=== PATIENT | female | born 1995 | race American Indian/Alaskan Native ===

== ENCOUNTER 2017-12-23 21:50 | Inpatient (IN) | payer MEDICAID ==
[~2017-12-23] VITALS: Ht 165.1 cm; Wt 106.0 kg
[~2017-12-23 21:50] MED LIST: BAC10T PO; FAMO-128 PO; METH4TAB81 PO; NAPR-56 PO; PHEN-716 PO; RANI150T44 PO
[2017-12-23 22:35] LABS: CLARITY,URINE CLOUDY (Clear); COLOR,URINE YELLOW (Yellow); GLUCOSE, URINE NEGATIVE (Neg); KETONES,URINE NEGATIVE (Neg); LEUKOCYTE ESTERASE ,URINE LARGE (Neg); NITRITES, URINE NEGATIVE (Neg); OCCULT BLOOD,URINE LARGE (Neg); PROTEIN,URINE TRACE mg/dl (Neg)
[2017-12-23 22:36] LABS: URINE HCG NEGATIVE (NEG)
[2017-12-23 22:41] LABS: UA COLLECTION TYPE CLN CATCH MIDSTREAM
[2017-12-23 22:43] LABS: BACTERIA,URINE FEW /HPF (Neg); RBC,URINE 20-50 /HPF (0-2); SQUAMOUS EPITHELIAL CELL,UR FEW /LPF (FEW); TRICHOMONAS,URINE FEW /HPF (NEGATIVE); WBC,URINE 30-50 /HPF (0-4)
[2017-12-23] MEDS ORDERED: ondansetron 4mg rapidly disintigrating tab PO ONE (23:20)
[2017-12-23] MEDS ORDERED: HYDROcodone/acetaminophen 5mg/325mg tablet PO ONE (23:20)
[2017-12-23] MEDS ORDERED: ketorolac tromethamine 15mg/ml inj. IM ONE (23:30)
[2017-12-23 23:35] LABS: BASOPHILS # (AUTO) 0.1 X10'3 (0-0.2); BASOPHILS % (AUTO) 0.6 % (0-1); EOSINOPHILS # (AUTO) 0.4 X10'3 (0-0.9); EOSINOPHILS % (AUTO) 2.2 % (0-6); HEMATOCRIT 33.8 % (35.0-45.0); HEMOGLOBIN 10.6 g/dl (12.0-16.0); LYMPHOCYTES # (AUTO) 1.7 X10'3 (1.1-4.8); LYMPHOCYTES % (AUTO) 10.5 % (21-51); MEAN CORPUSCULAR HEMOGLOBIN 23.1 PG (27.0-31.0); MEAN CORPUSCULAR HGB CONC 31.2 % (33.0-36.5); MEAN CORPUSCULAR VOLUME 74.1 FL (78-98); MEAN PLATELET VOLUME 7.1 FL (7.4-10.4); MONOCYTES # (AUTO) 0.8 X10'3 (0-0.9); MONOCYTES % (AUTO) 5.1 % (2-12); NEUTROPHILS # (AUTO) 13.1 X10'3 (1.8-7.7); NEUTROPHILS % (AUTO) 81.6 % (42-75); PLATELET COUNT 443 X10'3 (140-440); RED BLOOD COUNT 4.57 X10'6 (4.20-5.60); RED CELL DISTRIBUTION WIDTH 17.5 % (11.5-14.5); WHITE BLOOD COUNT 16.1 X10'3 (4.5-11.0)
[2017-12-23 23:50] LABS: ALANINE AMINOTRANSFERASE 20 U/L (12-78); ALBUMIN 3.3 G/DL (3.4-5.0); ALBUMIN/GLOBULIN RATIO 0.7 (1.1-1.5); ALKALINE PHOSPHATASE 86 IU/L (46-116); ANION GAP 9 (8-16); ASPARTATE AMINO TRANSFERASE 14 U/L (10-37); BILIRUBIN,TOTAL 0.2 MG/DL (0.1-1.0); BLOOD UREA NITROGEN 11 MG/DL (7-18); BUN/CREATININE RATIO 13.8 (6.6-38.0); CALCIUM 9.1 MG/DL (8.5-10.1); CHLORIDE 105 MMOL/L (99-107); GLUCOSE 114 MG/DL (70-104); POTASSIUM 3.8 MMOL/L (3.5-5.1); SODIUM 142 MMOL/L (135-145); TOTAL PROTEIN 7.9 G/DL (6.4-8.2); eGFR 88 ML/MIN
[2017-12-24] VITALS (18 sets, daily range): BP systolic 86–140; BP diastolic 56–86
[2017-12-24] MEDS ORDERED: metroNIDAZOLE 500mg tablet PO ONE (00:20)
[2017-12-24] MEDS ORDERED: NITR100C6 PO (00:20)
[2017-12-24] MEDS ORDERED: piperacillin/tazo 3.375gm/50ml 50 ML IV ONE (02:00)
[2017-12-24] MEDS ORDERED: morphine 2 MG/ML inj. syringe IV PRN (02:15)
[2017-12-24] MEDS ORDERED: acetaminophen 325mg tablet PO PRN (02:15)
[2017-12-24] MEDS ORDERED: bisacodyl 10mg suppository rectal RC PRN (02:15)
[2017-12-24] MEDS ORDERED: ondansetron/PF 4mg/2ml inj IV PRN ×2 (02:15→10:10)
[2017-12-24] MEDS ORDERED: diphenhydrAMINE 25mg capsule PO PRN (02:15)
[2017-12-24] MEDS ORDERED: metoclopramide 5 mg/ml inj IV PRN (02:15)
[2017-12-24] MEDS ORDERED: mag hydrox/Alum hydrox/simeth 30ml oral suspension PO PRN (02:15)
[2017-12-24] MEDS ORDERED: diphenhydrAMINE 50 mg/ml inj IV PRN (02:15)
[2017-12-24] MEDS ORDERED: HYDROcodone/acetaminophen 5mg/325mg tablet PO PRN (02:15)
[2017-12-24] MEDS ORDERED: magnesium hydroxide 30ml (MOM) UD suspension PO PRN (02:15)
[2017-12-24] MEDS ORDERED: HYDROmorphone 1 mg/ml syringe IV PRN (02:15)
[2017-12-24] MEDS ORDERED: IBUP-1984 PO (02:33)
[2017-12-24] MEDS: normal saline 1000ml 1,000 ML IV SCH ×3 (02:35→12:11)
[2017-12-24 02:55] LABS: HEMOGLOBIN A1C 6.1 % (4.5-6.2)
[2017-12-24] MEDS: docusate sod 100mg capsule PO SCH ×2 (07:44→21:52)
[2017-12-24] MEDS ORDERED: pantoprazole 40 MG vial IV SCH (08:00)
[2017-12-24] MEDS ORDERED: BUPIVAcaine/PF 2.5mg/ml (0.25%) 10ml vial ONE (09:41)
[2017-12-24] MEDS ORDERED: piperacillin/tazo 4.5gm/100ml 100 ML IV SCH (10:00)
[2017-12-24] MEDS ORDERED: fentaNYL/PF 50MCG/1 ML 2ML syringe ONE (10:00)
[2017-12-24] MEDS ORDERED: pneumococcal 23-VAL P-sac vacc 25 mcg/0.5ml vial IMVAC ONE (10:00)
[2017-12-24] MEDS ORDERED: midazolam 2 mg/2 ml injection ONE (10:00)
[2017-12-24] MEDS ORDERED: LIDOcaine 2% (20mg/ml) 5ml vial ONE (10:01)
[2017-12-24] MEDS ORDERED: propofol inj 20 ML IV ONE (10:01)
[2017-12-24] MEDS ORDERED: dexamethasone sod phosphate 4mg/ml inj. ONE (10:01)
[2017-12-24] MEDS ORDERED: ondansetron/PF 4mg/2ml inj ONE (10:01)
[2017-12-24] MEDS ORDERED: glycopyrrolate 0.2mg/ml inj ONE (10:01)
[2017-12-24] MEDS ORDERED: rocuronium 10mg/ml inj IV ONE (10:01)
[2017-12-24] MEDS ORDERED: ringers solution, lacted 1,000 ML IV SCH (10:07)
[2017-12-24] MEDS ORDERED: hydrALAZINE 20mg/ml inj. IV PRN (10:10)
[2017-12-24] MEDS ORDERED: labetalol 20mg/4ml (5mg/ml) syringe IV PRN (10:10)
[2017-12-24] MEDS ORDERED: morphine 4 MG/ML inj SYRINge IV PRN ×2 (10:10)
[2017-12-24] MEDS ORDERED: fentaNYL/PF 50MCG/1 ML 2ML syringe IV PRN ×2 (10:10)
[2017-12-24] MEDS ORDERED: sevoflurane 250ml liquid IH ONE (10:12)
[2017-12-24] MEDS ORDERED: neostigmine methylsulfate 1 MG/ML 10ml vial ONE (10:12)
[2017-12-24] MEDS: acetaminophen 325mg tablet PO PRN ×2 (15:57→21:53)
[2017-12-24] MEDS ORDERED: temazepam 15mg capsule PO PRN (21:00)
[2017-12-24] MEDS: ciprofloxacin 250mg tablet PO SCH (21:52)
[2017-12-25] VITALS: BP 111/73
[2017-12-25 05:47] LABS: BASOPHILS % (AUTO) 0.1 % (0-1); EOSINOPHILS # (AUTO) 0.2 X10'3 (0-0.9); EOSINOPHILS % (AUTO) 1.7 % (0-6); HEMATOCRIT 27.8 % (35.0-45.0); HEMOGLOBIN 8.8 g/dl (12.0-16.0); LYMPHOCYTES # (AUTO) 1.2 X10'3 (1.1-4.8); LYMPHOCYTES % (AUTO) 10.6 % (21-51); MEAN CORPUSCULAR HEMOGLOBIN 23.4 PG (27.0-31.0); MEAN CORPUSCULAR HGB CONC 31.6 % (33.0-36.5); MEAN CORPUSCULAR VOLUME 74.2 FL (78-98); MEAN PLATELET VOLUME 7.2 FL (7.4-10.4); MONOCYTES # (AUTO) 0.5 X10'3 (0-0.9); MONOCYTES % (AUTO) 4.2 % (2-12); NEUTROPHILS # (AUTO) 9.2 X10'3 (1.8-7.7); NEUTROPHILS % (AUTO) 83.4 % (42-75); PLATELET COUNT 369 X10'3 (140-440); RED BLOOD COUNT 3.74 X10'6 (4.20-5.60); RED CELL DISTRIBUTION WIDTH 17.3 % (11.5-14.5)
[2017-12-25 06:06] LABS: ALANINE AMINOTRANSFERASE 18 U/L (12-78); ALBUMIN 2.6 G/DL (3.4-5.0); ALBUMIN/GLOBULIN RATIO 0.7 (1.1-1.5); ALKALINE PHOSPHATASE 67 IU/L (46-116); ANION GAP 8 (8-16); ASPARTATE AMINO TRANSFERASE 13 U/L (10-37); BILIRUBIN,TOTAL 0.3 MG/DL (0.1-1.0); BLOOD UREA NITROGEN 10 MG/DL (7-18); BUN/CREATININE RATIO 14.9 (6.6-38.0); CALCIUM 8.5 MG/DL (8.5-10.1); CHLORIDE 106 MMOL/L (99-107); CHOL/HDL RATIO 2.9 (0.00-4.99); CHOLESTEROL 121 MG/DL (0-200); CREATININE 0.67 MG/DL (0.40-0.90); GLUCOSE 112 MG/DL (70-104); HDL CHOLESTEROL 42 MG/DL (35-60); LDL CHOLESTEROL 74 MG/DL (50-100); POTASSIUM 3.9 MMOL/L (3.5-5.1); SODIUM 140 MMOL/L (135-145); TOTAL PROTEIN 6.6 G/DL (6.4-8.2); TRIGLYCERIDES 32 MG/DL (20-135); eGFR > 90 ML/MIN
[2017-12-25 07:01] VITALS: BP 114/61
[2017-12-25] MEDS: docusate sod 100mg capsule PO SCH (08:47)
[2017-12-25] MEDS ORDERED: CIPR250T4 PO (09:24)
[2017-12-25] MEDS ORDERED: pneumococcal 23-VAL P-sac vacc 25 mcg/0.5ml vial IMVAC ONE (10:00)
[2017-12-25] MEDS: ciprofloxacin 250mg tablet PO SCH (10:36)
[2017-12-25 11:27] VITALS: BP 114/67
[2017-12-25] MEDS: acetaminophen 325mg tablet PO PRN (13:13)
[2017-12-25] MEDS ORDERED: lactobacillus rhamnosus 10,000 MMU CELLS/CAPSULE PO SCH (20:00)
== END 2017-12-25 17:25 | disposition home or self-care (01) | DRG 234 ==
LOC: ER 21:51 → ED HOLD 12-24 02:14 → SUR 3N 12-24 03:16
PROVIDERS: ADMIT Family Medicine; ATTEND Hospitalist
PROC: 0DTJ4ZZ Resection of Appendix, Percutaneous Endoscopic Approach (ICD-10-PCS; principal; 2017-12-24 10:12)
PROC: 3E02340 Introduction of Influenza Vaccine into Muscle, Percutaneous Approach (ICD-10-PCS; 2017-12-25)
PROC: 3E0234Z Introduction of Serum, Toxoid and Vaccine into Muscle, Percutaneous Approach (ICD-10-PCS; 2017-12-25)
DX: K35.80 Unspecified acute appendicitis (principal); E66.01 Morbid (severe) obesity due to excess calories; A59.9 Trichomoniasis, unspecified; E86.0 Dehydration; K59.00 Constipation, unspecified; N39.0 Urinary tract infection, site not specified; Z23 Encounter for immunization; Z88.8 Allergy status to other drugs, medicaments and biological substances; Z68.38 Body mass index [BMI] 38.0-38.9, adult; Z79.899 Other long term (current) drug therapy
CPT/HCPCS: 36415; 71045; 74176; 80053; 80061; 81001; 81025; 83036; 83735; 84443; 85025; 87070; 87088; 90732; 96372; 99285; A7000; C9113; G0378; J1100; J1170; J1885; J2001; J2250; J2405; J2543; J2704; J2710; J3010; J3490; J7030; J7120; Q2037

== ENCOUNTER 2018-04-06 20:06 | Emergency (ER) | payer MEDICAID ==
[~2018-04-06] VITALS: Ht 167.6 cm; Wt 95.0 kg
[~2018-04-06 20:06] MED LIST changes: -BAC10T PO; +CIPR250T4 PO; -FAMO-128 PO; +IBUP-1984 PO; -METH4TAB81 PO; -NAPR-56 PO; -PHEN-716 PO; -RANI150T44 PO
[2018-04-06 20:18] VITALS: BP 135/77
--- NOTE | 2018-04-06 20:53 | NUR ---
md at bedside- pt complains of neck pain- able to move neck normally. pain in back of neck from [facility]va
[2018-04-06] MEDS ORDERED: ibuprofen 200mg tablet PO ONE (21:00)
== END 2018-04-06 22:18 | disposition home or self-care (01) ==
LOC: ER 20:06
DX: S13.4XXA Sprain of ligaments of cervical spine, initial encounter (principal); R51 Headache; Z88.6 Allergy status to analgesic agent; V49.50XA Passenger injured in collision with unspecified motor vehicles in traffic accident, initial encounter; Y93.89 Activity, other specified; Y92.488 Other paved roadways as the place of occurrence of the external cause; Y99.8 Other external cause status
CPT/HCPCS: 99282

== ENCOUNTER 2018-10-19 10:25 | Emergency (ER) | payer MEDICAID, OTHER ==
[~2018-10-19] VITALS: Ht 167.6 cm; Wt 111.6 kg
--- NOTE | 2018-10-19 11:59 | NUR ---
assisted dr jeffers with rectal exam. guiac neg
[2018-10-19 12:05] VITALS: BP 134/71
[2018-10-24 15:05] LABS: OCCULT BLOOD STOOL NEGATIVE (Neg)
== END 2018-10-19 12:08 | disposition home or self-care (01) ==
LOC: ER 10:26
DX: Z00.8 Encounter for other general examination (principal); Z90.49 Acquired absence of other specified parts of digestive tract; Z88.8 Allergy status to other drugs, medicaments and biological substances; Z79.899 Other long term (current) drug therapy
CPT/HCPCS: 82272; 99283

== ENCOUNTER 2019-10-27 12:45 | Emergency (ER) | payer MEDICAID, OTHER ==
[~2019-10-27] VITALS: Ht 167.6 cm; Wt 119.0 kg
[2019-10-27 12:59] VITALS: BP 126/95
--- NOTE | 2019-10-27 14:30 | NUR ---
Lab at bedside for blood draw.
[2019-10-27 14:40] LABS: BASOPHILS % (AUTO) 0.4 % (0-1); EOSINOPHILS # (AUTO) 0.1 X10'3 (0-0.9); EOSINOPHILS % (AUTO) 1.2 % (0-6); HEMATOCRIT 26.3 % (35.0-45.0); HEMOGLOBIN 8.3 g/dl (12.0-16.0); LYMPHOCYTES # (AUTO) 2.5 X10'3 (1.1-4.8); LYMPHOCYTES % (AUTO) 28.5 % (21-51); MEAN CORPUSCULAR HEMOGLOBIN 23.8 PG (27.0-31.0); MEAN CORPUSCULAR HGB CONC 31.8 g/dL (33.0-36.5); MEAN CORPUSCULAR VOLUME 75.1 FL (78-98); MEAN PLATELET VOLUME 6.3 FL (7.4-10.4); MONOCYTES # (AUTO) 0.7 X10'3 (0-0.9); MONOCYTES % (AUTO) 7.3 % (2-12); NEUTROPHILS # (AUTO) 5.6 X10'3 (1.8-7.7); NEUTROPHILS % (AUTO) 62.6 % (42-75); PLATELET COUNT 414 X10'3 (140-440); RED CELL DISTRIBUTION WIDTH 16.7 % (11.5-14.5); WHITE BLOOD COUNT 8.9 X10'3 (4.5-11.0)
[2019-10-27 14:57] LABS: ALANINE AMINOTRANSFERASE 28 U/L (12-78); ALBUMIN 3.2 G/DL (3.4-5.0); ALBUMIN/GLOBULIN RATIO 0.7 (1.1-1.5); ALKALINE PHOSPHATASE 89 IU/L (46-116); ANION GAP 7 (8-16); ASPARTATE AMINO TRANSFERASE 16 U/L (10-37); BILIRUBIN,TOTAL 0.2 MG/DL (0.1-1.0); BLOOD UREA NITROGEN 8 MG/DL (7-18); BUN/CREATININE RATIO 11.3 (6.6-38.0); CALCIUM 8.4 MG/DL (8.5-10.1); CHLORIDE 105 MMOL/L (99-107); CREATININE 0.71 MG/DL (0.40-0.90); GLUCOSE 80 MG/DL (70-104); LIPASE 87 U/L (73-393); POTASSIUM 3.8 MMOL/L (3.5-5.1); SODIUM 142 MMOL/L (135-145); TOTAL PROTEIN 7.5 G/DL (6.4-8.2); eGFR > 90 ML/MIN
[2019-10-27 14:57] LABS: CLARITY,URINE CLEAR (Clear); COLOR,URINE YELLOW (Yellow); GLUCOSE, URINE NEGATIVE (Neg); KETONES,URINE NEGATIVE (Neg); LEUKOCYTE ESTERASE ,URINE TRACE (Neg); NITRITES, URINE NEGATIVE (Neg); OCCULT BLOOD,URINE LARGE (Neg); PROTEIN,URINE NEGATIVE (Neg); UROBILINOGEN,URINE 0.2 E.U/dL (0.2-1.0)
[2019-10-27 14:58] LABS: URINE HCG NEGATIVE (NEG)
[2019-10-27 14:59] LABS: UA COLLECTION TYPE CLN CATCH MIDSTREAM
[2019-10-27 15:05] LABS: BACTERIA,URINE NONE SEEN /HPF (Neg); MUCUS STRANDS NONE SEEN /LPF (Neg); RBC,URINE TNTC /HPF (0-2); SQUAMOUS EPITHELIAL CELL,UR FEW /LPF (FEW)
[2019-10-27] MEDS ORDERED: IBUP-1986 PO (15:09)
[2019-10-27] MEDS ORDERED: ONDA4TAB6 PO (23:38)
[2019-10-27] MEDS ORDERED: TRAN650T2 PO (23:50)
== END 2019-10-27 15:25 | disposition home or self-care (01) ==
LOC: ER 12:45
DX: N93.9 Abnormal uterine and vaginal bleeding, unspecified (principal); R50.9 Fever, unspecified; R51 Headache; Z88.8 Allergy status to other drugs, medicaments and biological substances; Z79.899 Other long term (current) drug therapy
CPT/HCPCS: 36415; 80053; 81001; 81025; 83690; 85025; 87088; 99283; 99284

== ENCOUNTER 2019-10-27 23:04 | Emergency (ER) | payer MEDICAID, OTHER ==
[~2019-10-27] VITALS: Ht 167.6 cm; Wt 114.5 kg
[~2019-10-27 23:04] MED LIST changes: +IBUP-1986 PO
[2019-10-27] MEDS ORDERED: ONDA4TAB6 PO (23:38)
[2019-10-27] MEDS ORDERED: ondansetron 4mg rapidly disintigrating tab PO ONE (23:40)
[2019-10-27] MEDS ORDERED: TRAN650T2 PO (23:50)
[2019-10-28 00:02] VITALS: BP 123/73
== END 2019-10-28 00:12 | disposition home or self-care (01) ==
LOC: ER 23:05
DX: R11.2 Nausea with vomiting, unspecified (principal); R53.83 Other fatigue; R51 Headache; Z90.49 Acquired absence of other specified parts of digestive tract; Z88.8 Allergy status to other drugs, medicaments and biological substances; Z79.899 Other long term (current) drug therapy
CPT/HCPCS: 99283

== ENCOUNTER 2021-07-07 15:13 | Emergency (ER) | payer MEDICAID ==
[~2021-07-07] VITALS: Ht 165.1 cm; Wt 107.7 kg
[~2021-07-07 15:13] MED LIST changes: +NITR100C6 PO; +ONDA4TAB6 PO; +TRAN650T2 PO
[2021-07-07 15:23] VITALS: BP 134/77
[2021-07-07] MEDS ORDERED: orphenadrine citrate 60mg/2ml inj. IM ONE (16:30)
[2021-07-07] MEDS ORDERED: ketorolac trometh. 30mg/ml inj. IM ONE (16:30)
[2021-07-07] MEDS ORDERED: HYDR-3965 PO (16:30)
[2021-07-07] MEDS ORDERED: CYCL-1 PO (16:30)
[2021-07-07] MEDS ORDERED: ONDA4TAB12 PO (16:30)
[2021-07-07] MEDS ORDERED: ondansetron 4mg rapidly disintigrating tab PO ONE (16:55)
[2021-07-07] MEDS ORDERED: HYDROcodone/acetaminophen 5mg/325mg tablet PO ONE (16:55)
[2021-07-07] MEDS ORDERED: cyclobenzaprine 10mg tablet PO ONE (16:55)
== END 2021-07-07 17:07 | disposition home or self-care (01) ==
LOC: ER 15:13
DX: M54.50 Low back pain, unspecified (principal); Z87.440 Personal history of urinary (tract) infections; Z90.89 Acquired absence of other organs; Z88.8 Allergy status to other drugs, medicaments and biological substances; Z79.2 Long term (current) use of antibiotics; Z79.899 Other long term (current) drug therapy
CPT/HCPCS: 99284

== ENCOUNTER 2021-07-16 07:49 | Emergency (ER) | payer MEDICAID ==
[~2021-07-16] VITALS: Ht 165.1 cm; Wt 107.0 kg
[~2021-07-16 07:49] MED LIST changes: +CYCL-1 PO; +ONDA4TAB12 PO
[2021-07-16 07:56] VITALS: BP 121/70
[2021-07-16] MEDS ORDERED: LORA10TA65 PO (09:10)
[2021-07-16] MEDS ORDERED: HYDR28CR14 TOP (09:10)
[2021-07-16] MEDS ORDERED: FAMO20TA8 PO (23:38)
[2021-07-16] MEDS ORDERED: PRED20TA PO (23:38)
== END 2021-07-16 09:50 | disposition home or self-care (01) ==
LOC: ER 07:50
DX: L25.9 Unspecified contact dermatitis, unspecified cause (principal); Z87.448 Personal history of other diseases of urinary system; Z88.8 Allergy status to other drugs, medicaments and biological substances; Z79.899 Other long term (current) drug therapy
CPT/HCPCS: 99283

== ENCOUNTER 2021-07-16 22:19 | Emergency (ER) | payer MEDICAID ==
[~2021-07-16] VITALS: Ht 165.1 cm; Wt 107.8 kg
[~2021-07-16 22:19] MED LIST changes: +HYDR28CR14 TOP; +LORA10TA65 PO
--- NOTE | 2021-07-16 23:29 | NUR ---
Patient seen by PA in ED. A Rx will be given PO.
[2021-07-16] MEDS ORDERED: diphenhydrAMINE 25mg capsule PO ONE (23:30)
[2021-07-16] MEDS ORDERED: famotidine 20mg tablet PO ONE (23:30)
[2021-07-16] MEDS ORDERED: predniSONE 20 mg tablet PO ONE (23:30)
[2021-07-16] MEDS ORDERED: PRED20TA PO (23:38)
[2021-07-16] MEDS ORDERED: FAMO20TA8 PO (23:38)
[2021-07-17 00:19] VITALS: BP 113/83
--- NOTE | 2021-07-17 00:19 | NUR ---
Patient was compliant with medication administration. She feels improved. Disch to home with flu inst.
== END 2021-07-17 00:22 | disposition home or self-care (01) ==
LOC: ER 22:20
DX: T78.49XA Other allergy, initial encounter (principal); Z87.448 Personal history of other diseases of urinary system; Z88.6 Allergy status to analgesic agent; Z79.899 Other long term (current) drug therapy
CPT/HCPCS: 99284; J7512; Q0163